=== PATIENT | male | born 1950 | race Caucasian/White ===

== ENCOUNTER → 2019-10-27 | Outpatient (CLI) | payer MEDICARE ==
[2017-04-13 15:05] VITALS: BP 119/78
[~2019-10-27] MED LIST: CELE200C PO; DONE10TA7 PO; DULO60CA6 PO; GABA300C18 PO; GLIP10TA13 PO; HYDR-2165 PO; HYDR-2765 PO; LISI-334 PO; METF10007 PO; SIMV20TA18 PO
--- NOTE | 2019-10-27 13:15 | KCIC ---
CT HEAD WO CONTRAST History:Multiple falls, tremors, early onset Alzheimer's, history of stroke Comparison: April 10, 2017 Technique: Noncontrast CT imaging was performed of the head. Exposure: One or more of the following individualized dose reduction techniques were utilized for this examination: 1. Automated exposure control 2. Adjustment of the mA and/or kV according to patient size 3. Use of iterative reconstruction technique. Findings: There is no evidence of acute intracranial hemorrhage. There is stable moderate third and lateral ventriculomegaly and mild fourth ventriculomegaly, although there is supratentorial atrophy as seen previously. There is no new midline shift or extra-axial fluid collection. There are again what likely represent old lacunar infarcts of the bilateral basal ganglia. There is some other mild ill-defined low-density of the supratentorial parenchyma. There is patchy [id number] ethmoid air cell and minimal frontal sinus mucosal thickening. Mastoid air cells are aerated. Impression: 1. Intracranial findings are similar compared with the March 2017 exam. There is stable ventriculomegaly, sequela of atrophy considered more likely than communicating hydrocephalus. Ill-defined low-density of the supratentorial parenchyma is nonspecific, may be due to chronic microvascular ischemic disease. There are again likely old lacunar infarcts of the bilateral basal ganglia. Electronically signed by: John Pond MD (10/27/2019 1:12 PM) [id number]
== END | disposition home or self-care (01) ==
LOC: KCIC CT 12:34
PROVIDERS: ATTEND Family Medicine
DX: G30.0 Alzheimer's disease with early onset (principal); R29.6 Repeated falls; R25.1 Tremor, unspecified; R26.81 Unsteadiness on feet; I51.7 Cardiomegaly; Z86.73 Personal history of transient ischemic attack (TIA), and cerebral infarction without residual deficits
CPT/HCPCS: 70450